=== PATIENT | female | born 1945 | race Caucasian/White ===

== ENCOUNTER 2022-05-02 08:07 | Outpatient (CLI) | payer MEDICARE, BC, SELFPAY ==
--- NOTE | 2022-05-02 08:15 | CRLHL7_ITS ---
For Patients: As a result of the Century Cures Act, medical imaging exams and procedure reports are released immediately into your electronic medical record. You may view this report before your referring provider. If you have questions, please contact your health care provider. BILATERAL SCREENING MAMMOGRAM WITH COMPUTER-AIDED DETECTION TECHNIQUE: CC and MLO views were obtained. These mammographic images have been obtained using full-field digital technique. These mammographic images were interpreted with the benefit of computer-aided detection. COMPARISON FILM: 04/09/21, 03/31/20, 03/23/19 diagnostic, 03/17/19 screen. FINDINGS: There are scattered areas of fibroglandular density. IMPRESSION: There is no radiographic evidence for malignancy. ASSESSMENT: BI-RADS Category 1: Negative RECOMMENDATION: Routine screening mammogram in 1 year. A lay language report of this examination will be provided to the patient. Corby Contreras M.D. Diagnostic Radiologist [email or web address] Transcribed: 12:57 p.m PT/Dictated by: Corby Contreras MD @ 05/02/2022 9:56:00 AM (Electronically Signed)
== END 2022-05-02 08:08 | disposition home or self-care (01) ==
LOC: MAMMO 08:11
PROVIDERS: PCP Internal Medicine; Visit Provider Internal Medicine
DX: Z12.31 Encounter for screening mammogram for malignant neoplasm of breast (principal)
CPT/HCPCS: 77063; 77067

== ENCOUNTER 2022-05-19 10:11 | Emergency (ER) | payer MEDICARE, BC, SELFPAY ==
[2022-05-19 10:17] VITALS: BP 184/105; PULSE 71; RESP 20; TEMP 36.3; O2SAT 96; BMI 27.8
--- NOTE | 2022-05-19 10:35 | ED_ITS ---
HPI - General Adult General Chief complaint: Extremity Pain/Injury, Lower Stated complaint: Pain going down LT leg Time Seen by Provider: 05/19/22 10:20 Source: patient Mode of arrival: ambulatory Limitations: no limitations History of Present Illness HPI narrative: Patient is a very energetic 77-year-old female coming in today concerned about leg pain. She states that when she stands up and puts weight on her left leg that she gets shooting pain that starts in her lower back radiates down the side of the leg all the way down to the toe. She describes it as an electric shock. When she removes weight from that leg the pain goes away. She has no pain with sitting or lying down. She denies any fevers or chills. She denies other systemic symptoms. She denies any loss of bowel or bladder function. She denies any discomfort on the right side. Related Data Home Medications Medication Instructions Recorded Confirmed atorvastatin 20 mg tablet 20 mg PO .Bedtime 05/01/22 05/01/22 [id number] 333 mg-133 1 tab PO QDAY 05/01/22 05/01/22 mg-5 mg tablet clobetasol 0.05 % topical ointment 1 topical DIRECTED 05/01/22 05/01/22 conjugated estrogens 0.625 mg 0.625 mg PO DAILY 05/01/22 05/01/22 tablet cyclosporine 0.05 % eye drops 1 drp ophthalmic (eye) BID 05/01/22 05/01/22 metronidazole 500 mg tablet mg PO BID 05/01/22 05/01/22 multivitamin (Multiple Vitamins 1 tab PO QDAY 05/01/22 05/01/22 tablet) Previous Rx's Medication Instructions Recorded methylprednisolone 4 mg tablets in See Rx Instructions PO .COMPLEX 05/19/22 a dose pack (Medrol (Dominick)) #21 ea Allergies Allergy/AdvReac Type Severity Reaction Status Date / Time sulfamethoxazole Allergy Intermediate extreme Verified 05/01/22 15:13 fever trimethoprim Allergy Intermediate GI upset Verified 05/01/22 15:13 Sulfa drugs Allergy Mild extreme Uncoded 05/01/22 15:13 fever Review of Systems Status of ROS: Reports: 10 or more systems reviewed and unremarkable except as noted in History and below PFS PFS Surgical History History of total vaginal hysterectomy (TVH) Social History Smoking Status: Never smoker How often do you have a drink containing alcohol: monthly or less How many standard drinks containing alcohol do you have on a typical day: 1 or 2 AUDIT-C Alcohol total score: 1 Non-prescribed substance use: denies use Exam Narrative: Exam Narrative: Well-nourished well-developed patient in no acute distress. Alert and oriented. Answers questions appropriately. Mood and affect are appropriate. Thoughts are goal oriented and rational. No tangential or magical thinking noted. Patient speaks in full sentences without needing to catch her breath. HEENT: Normocephalic atraumatic. Pupils are equally round reactive to light. Extraocular muscles are intact. Conjunctivae are moist without any icterus noted. Extremities: Bilateral lower extremities are without edema. Normal DP and PT pulses. There is no skin changes notice such as ecchymosis or erythema. She has full strength of the upper and lower extremities. Reflexes are 2+ symmetric at the knees. She can stand up without difficulty. However she leans forward a little bit when she walks because this alleviates the radiating pain down the left leg.She has full range of motion at the hip without significant discomfort when lying down. Skin: Well perfused without any obvious rashes. Back: Normal appearance. She has no tenderness to palpation over the thoracic or lumbar spine. There is no tenderness over the paraspinal musculature. Const: Vital Signs, click to edit/add: Vital Signs - 24 hr 05/19/22 10:17 Temperature 97.3 F L Pulse Rate [Right Pulse Oximeter] 71 Respiratory Rate 20 Blood Pressure [Ri ght Upper Arm] 184/105 H Pulse Oximetry 96 Oxygen Delivery Me thod Room Air Course Vital Signs Vital signs: Initial Vital Signs Temperature 97.3 F L 05/19/22 10:17 Temperature Source Temporal Artery Scan 05/19/22 10:17 Pulse Rate 71 05/19/22 10:17 Pulse Rhythm 05/19/22 10:17 Respiratory Rate 20 05/19/22 10:17 Blood Pressure 184/105 H 05/19/22 10:17 Blood Pressure Mean 131 05/19/22 10:17 Blood Pressure Position Sitting 05/19/22 10:17 Pulse Oximetry 96 05/19/22 10:17 Oxygen Delivery Method 05/19/22 10:17 Vital Signs Temperature 97.3 F L 05/19/22 10:17 Pulse Rate 71 05/19/22 10:17 Respiratory Rate 20 05/19/22 10:17 Blood Pressure 184/105 H 05/19/22 10:17 Pulse Oximetry 96 05/19/22 10:17 Oxygen Delivery Method 05/19/22 10:17 Temperature 97.3 F L 05/19/22 10:17 Pulse Rate 71 05/19/22 10:17 Respiratory Rate 20 05/19/22 10:17 Blood Pressure 184/105 H 05/19/22 10:17 Pulse Oximetry 96 05/19/22 10:17 Oxygen Delivery Method 05/19/22 10:17 Medical Decision Making MDM Narrative Medical decision making narrative: 77-year-old female who appears to be lumbar radiculopathy. We are going to put the patient on a Medrol Dosepak. I recommend she follow up with primary care provider this coming week. Recommend she follow back in the ER if she develops worsening symptoms, fevers or vomiting. Discharge Plan Discharge Clinical Impression: Acute lumbar radiculopathy Patient Disposition: Home, Self-Care Condition: Stable Additional Instructions: Start steroid as prescribed. Okay to take for Tylenol as needed for discomfort. Follow-up with your primary care provider this coming week. Return to the ER if you develop worsening symptoms, vomiting or fevers. Prescriptions: New methylprednisolone [Medrol (Dominick)] 4 mg tablets,dose pack See Rx Instructions .ROUTE .COMPLEX Qty: 21 0RF Rx Instructions: orally per package directions No Action cyclosporine 0.05 % drops 1 drp ophthalmic (eye) BID clobetasol 0.05 % ointment 1 topical DIRECTED Rx Instructions: APPLY SPARINGLY TO AFFECTED AREA [id number]-rlac [id number] mg tablet 1 tab PO QDAY multivitamin [Multiple Vitamins] Tablet 1 tab PO QDAY atorvastatin 20 mg tablet 20 mg PO .Bedtime metronidazole 500 mg tablet PO BID Rx Instructions: avoid alcohol while taking this medication. conjugated estrogens 0.625 mg tablet 0.625 mg PO DAILY Rx Instructions: Take 0.5 tab daily Follow Up/Referrals: Baldemar Starks MD [Primary Care Provider] - Stand Alone Forms: [facility] Info Instructions
[2022-05-19 11:08] VITALS: BP 184/105; PULSE 71; RESP 20; TEMP 36.3
== END 2022-05-19 11:09 | disposition home or self-care (01) ==
LOC: ED 10:59
PROVIDERS: Emergency Provider Family Medicine; PCP Internal Medicine
DX: M54.16 Radiculopathy, lumbar region (principal)
CPT/HCPCS: 99283; 99284

== ENCOUNTER 2022-06-03 13:00 | Outpatient (RCR) | payer MEDICARE, BC, SELFPAY ==
--- NOTE | 2022-05-27 16:39 | PT.OPE ---
[facility] PT [facility] Outpatient Eval Start: 05/27/22 12:41 Freq: Status: Active Protocol: Document 05/27/22 16:37 CJT (Rec: 05/27/22 16:39 CJT [id number]) E-signed By Iván Soto PT Physical Therapy Outpatient Evaluation Insurance Information Recert Due Date 07/22/22 Insurance Name Medicare B Medical Diagnosis M54.3 - sciatica, unspecified side Treating Diagnosis M54.32 - L sciatica Referring Baldemar Morton MD Subjective Subjective Pt complains of L sided sciatica beginning 05/19/22. Pain ranges from 0-10/10 at times with occasional sharp pain. Pt has no pain in sitting but has increased pain in standing as well as reaching overhead. Pt presents with stooped posture. Pts pain is located in anterior L thigh and tibialis anterior. Sleeps on her back. Does pelvic clocks, cat/cow, cobra stretch, tiger stretch x 10 seconds ea x 3/day. Stand tolerance is about 1 minute before onset of leg pain. [place] a spasm on her R buttock several days ago that has since resolved. Pain symptoms have been fluctuating over the past week. Has been fine to lay on her back with legs straight but over the past few days she has been having pain in the L leg with having it extended. Pt has history of injury to low back in which she fell on her back after falling on the stairs. [place] a pop but was able to walk just fine. This was about 25-30 years ago now. Pain Comments 0-10/10 Date of Last Physician Visit 05/22/22 Current Work Status Retired Preferred Name Paty [facility] Therapy Limitations/Systems Review Not Limited Objective Range of Motion Lumbar ROM Extension - 25 Flexion - 120 - can easily reach R/L Side Bend - 26/30 R/L Rotation - no impairments bilaterally R Hip ROM Flexion - 120 IR/ER - 40/35 L Hip ROM Flexion - 120 IR/ER - 30/25 R knee ROM - full L knee ROM - full Strength Upper Abdominals - DNT Lower Abdominals - DNT R Hip Strength Flexion - 5/5 MMT Abduction - 4/5 MMT Adduction - 5/5 MMT IR - 5/5 MMT ER - 5/5 MMT Extension - 4/5 MMT L Hip Strength Flexion - 5/5 MMT Abduction - 4/5 MMT Adduction - 5/5 MMT IR - 5/5 MMT ER - 4/5 MMT Extension - 4/5 MMT R knee Extension - 5/5 MMT R Knee Flexion - 5/5 MMT L knee Extension - 5/5 MMT L knee Flexion - 5/5 MMT R ankle DF - 5/5 MMT L ankle DF - 5/5 MMT Palpation Palpation: pt tender with palpation to R>L adductor bundle, glute med, piriformis, and glute min with spasms present in R>L glute med. Other/Pertinent Objective All special testing for disc and radicular sources of pain is negative at this time. Assessment Assessment/Impression Pt is a 77 year old female who presents to OP PT clinic with complaints of L thigh and leg pain. Pts pain is located along rectus femoris and tibialis anterior mm on L side with specific movements. Patterns of pain are unclear at this time but seem to be related to extension in WB positions. Pt walked in with a hunched postured and noted that this was not painful for her but if she stood up this was painful and pain was located in anterior thigh and john. Testing for disc and radicular involvement was negative today. Paty's symptoms seem to be radicular in nature ad extension general causes her pain to be worse and she improves with core stabilization. Pt leaves for vacation to [place] in 2 weeks and would like to resolve this issue by then. Skilled PT services are medically necessary to address deficits and return patient to highest level of function. Recommend physical therapy sessions 1-2/ week for 8 weeks. We will plan to work with Paty until she leaves for her vacation in 2 weeks and she may contact us when she returns if further treatment is needed. Pt agrees with this plan. Printout of HEP was given for I completion and pt gives verbal understanding of each exercise. Primary Functional Limitations Standing, reaching overhead Plan of Care Rehabilitation Potential Good Physical Therapy Goals STG - To be completed in 2-3 weeks: 1. Pt will report reduction in back pain by factor of 2 so that they may perform all ADLs with tolerable level of pain. 2. Pt will demonstrate ability to perform pelvic tilt with good coordination as indication of appropriate firing of pelvic and lumbar stabilizing muscles to provide greater support for pelvis and lumbar spine. 3. Pt will demonstrate 5/5 MMT for all LE motions without reproduction of pain to provide greater support to pelvis and lumbar spine. 4. Pt will report ability to tolerate 30+ minutes of standing so that they may stand while on tours of historical sites in [place]. LTG - To be completed in 8 weeks: 1. Pt to be I with HEP so that they may I manage progression of symptoms. 2. Pt will demonstrate 5/5 MMT for both upper and lower abdominals to provide greater support to pelvis and lumbar spine. 3. Pt will report absence of thigh and leg pain with standing so that she may stand and walk in grocery store without pain. Treatment Plan/Direct Interventions Joint Mobilization,Manual Therapy,Neuromuscular Re-ed, Self-Care/Home Management, Therapeutic Exercises,Traction (Mechanical) Frequency/Duration 2/week for 8 weeks Patient Will Be Discharged From Therapy Completion of LTG(s),Skills Plateau,Independent w/HEP, Independently Progressing Evaluation Billing Untimed Code Treatment Minutes 55 PT Eval No Charge No Complexity Low Certification Information Initial Certification Date 05/27/22 Ending Certification Date 07/22/22 Provider Signature Shows Agreement With POC & Medical Necessity Physician Comment/Change Comment or Changes Physician NPI Number #
== END 2022-07-17 12:42 | disposition home or self-care (01) ==
PROVIDERS: PCP Internal Medicine; Visit Provider Internal Medicine
DX: M54.30 Sciatica, unspecified side (principal); Z51.89 Encounter for other specified aftercare
CPT/HCPCS: 97110; 97112; 97140; 97161

== ENCOUNTER 2022-06-28 07:08 | Outpatient (CLI) | payer MEDICARE, BC, SELFPAY ==
--- NOTE | 2022-06-28 07:15 | MR_ITS ---
[facility] [address] [facility] [address] Phone:?[phone] Fax:?[phone] Referring Physician Information: Baldemar Starks M.D. [address] [facility] [address] Phone:?[phone] Fax:?[phone] Patient:Krystyna Toribio D.O.B:?1945 Sex:?Female Phone:?[phone] [facility] MRN:?[id number] Exam Date:?06/28/2022 ? EXAM: MR LUMBAR SPINE WITHOUT CONTRAST CLINICAL INFORMATION: 77-year-old female with low back pain. COMPARISON: None. TECHNICAL INFORMATION: Sagittal T2, sagittal T1, sagittal STIR, axial T2, and axial T1-weighted MR images of the lumbar spine on a 1.5 Berna magnet. CONTRAST: None. SEDATION: None. INTERPRETATION: Lordotic alignment of 5 nonrib-bearing lumbar vertebral bodies with scattered degenerative endplate disruption/edema greatest at L4-5 on the left, and no spondylolysis, vertebral collapse, acute fracture, or destructive osseous lesion. Normal pre and paravertebral soft tissues. Conus medullaris positioned at L1-2. Developmentally conjoined left L5-S1 nerve roots. L5-S1: Degenerative disc desiccation with preserved disc height, 2-3 mm AP slightly caudally extruded dorsal disc herniation, and mild bilateral facet degeneration. Mild bilateral subarticular stenosis, with encroachment of the developmentally lateralized descending left S1 root, just beyond its branch point from the conjoined left L5/S1 root. Patent foramina. L4-5: Moderate to advanced disc degeneration, 8 mm spondylolisthesis, dorsal to left greater than right annular fissures, unroofing of the dorsal disc margin, advanced bilateral facet degeneration with mild inflammatory subchondral edema, and severe central/bilateral subarticular stenosis with superior nerve root tortuosity indicating impingement and traction on the cauda equina. Moderate to severe left and mild right foraminal stenosis, noting contribution on the left from a 4 mm AP extruded distal foraminal disc herniation impinging the exiting left L4 root. L3-4: Mild disc degeneration, mild diffuse annular bulge, superimposed left foraminal annular fissure/2-3 mm protrusion, mild bilateral facet degeneration, mild to moderate left/mild right subarticular stenosis with descending left L4 root encroachment, and mild left greater than right foraminal stenosis. L2-3: Moderate disc degeneration, dorsal annular fissure, diffuse annular bulge, mild facet degeneration, mild bilateral subarticular stenosis, and mild bilateral foraminal stenosis. L1-2: Moderate disc degeneration, mild dorsal annular bulge, mild bilateral facet degeneration, and no stenosis or impingement. T12-L1 and T11-12: Normal dorsal disc contours and normal facets. CONCLUSION: Multilevel lumbar degenerative changes with specifics as follows: 1. L4-5 severe central and subarticular stenosis with impingement and traction on the cauda equina setting of grade 1 degenerative spondylolisthesis. 2. L3-4 mild to moderate subarticular encroachment of the descending left L4 root. Mild subarticular stenosis bilaterally at L2-3, on the right at L3-4, and left greater than right L5-S1, noting encroachment of the developmentally lateralized left S1 root, just beyond its branch point from the conjoined left L5/S1 root. 3. Foraminal stenosis, moderate to severe on the left at L4-5, noting contribution from an extruded disc herniation impinging the exiting left L4 root. Mild on the right at L4-5, left greater than right at L3-4, and bilaterally at L2-3. 4. Facet degeneration, advanced bilaterally at L4-5 with superimposed mild inflammatory changes. Mild bilaterally at L2-3, L3-4, and L5-S1. 5. No spondylolysis, vertebral collapse, acute fracture, or destructive osseous lesion. 6. Multilevel degenerative endplate disruption/edema greatest on the left at L4- 5 is another potential source of axial/mechanical low back pain. PDB Electronically signed on 06/30/2022 12:29:00 PM by Ervin Edward M.D.
== END 2022-06-28 07:09 | disposition home or self-care (01) ==
LOC: MRI 07:09
PROVIDERS: PCP Internal Medicine; Visit Provider Internal Medicine
DX: M54.30 Sciatica, unspecified side (principal); M54.50 Low back pain, unspecified; M48.061 Spinal stenosis, lumbar region without neurogenic claudication
CPT/HCPCS: 72148

== ENCOUNTER 2022-07-16 14:03 | Outpatient (CLI) | payer MEDICARE, BC, SELFPAY ==
--- OUTSIDE RECORDS SUMMARY | 2022-07-16 14:12 | XMS_ITS | Clinical Summary ---
:1945 Author Organization [employer] [facility] [place] [address] Care Team Providers Name Role Phone Pcp, No Primary Care Provider Unavailable Allergies Active Allergy Reactions Severity Noted Date Comments Sulfa (Sulfonamide Other - Describe In 07/08/2022 Te mperature dropped, Antibiotics) Comment Field fell ill Medications Medication Sig Dispensed Refills Start Date End Date Status atorvastatin (LIPITOR) Take 20 mg by 0 05/18/2022 Active 20 mg tablet mouth at bedtime. Restasis 0.05 % Place 1 Drop into 0 05/29/2022 Active ophthalmic emulsion both eyes two times daily. triamcinolone APPLY TOPICALLY 0 12/12/2021 Active (ARISTOCORT; KENALOG) TO THE AFFECTED 0.1 % cream AREA TWICE DAILY gabapentin (NEURONTIN) Take 1 Capsule 30 Capsule 3 07/08/2022 Active 300 mg (300 mg) by mouth capsuleIndications: at bedtime. Lumbosacral radiculopathy at L4 Active Problems No known active problems Encounters Date Type Specialty Care Team Description 07/16/2022 Telephone Aydin Reyes Injecti on (Medication) (POSSIBLE WEAKN ESS) 07/16/2022 Travel 07/15/2022 Telephone Aydin Reyes Questio ns MD 07/08/2022 Office Visit Aydin Reyes, Musculo skeletal Problem (Consult low ba ck and left leg pain) 07/08/2022 Travel 07/05/2022 Orders Only Scanner <No scans attac hed> 07/05/2022 Telephone Aydin Reyes, Mak (MRI SCANS ) 06/28/2022 Orders Only Scanner <No scans attac hed> from Last 3 Months Family History Medical History Relation Name Comments Genetic Other 1 macular degenera tion-parent Genetic Other 2 macular degenera tion-parent~cancer~irregular heart beat~thyroid~art hritis Relation Name Status Comments Other 1 Other 2 Social History Tobacco Use Types Packs/Day Years Used Date Never Smoker 0 Smokeless Tobacco: Never Used Tobacco Cessation: Counseling Given: Yes Sex Assigned at Date Recorded Not on file COVID-19 Exposure Response Date Recorded In the last 10 days, have you been in contact Unable to asse ss 07/16/2022 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 Obstetrics History Last Filed Vital Signs Vital Sign Reading Time Taken Comments Blood Pressure 167/96 07/08/2022 9:00 AM TRANSCRIBING MACHINE OPERATOR Pulse 80 07/08/2022 9:00 AM TRANSCRIBING MACHINE OPERATOR Temperature 36.7 ??C (98.1 ??F) 07/08/2022 9:00 AM TRANSCRIBING MACHINE OPERATOR Respiratory Rate - - Oxygen Saturation 96% 07/08/2022 9:00 AM TRANSCRIBING MACHINE OPERATOR Inhaled Oxygen Concentration - - Weight 75.3 kg (166 lb) 07/08/2022 9:00 AM TRANSCRIBING MACHINE OPERATOR Height - - Body Mass Index - - Plan of Treatment Upcoming Encounters Date Type Specialty Care Team Description 07/16/2022 Office Visit Aydin Reyes MD Arrived [address] [place], [place] [address] (Wo rk) Health Maintenance Due Date Last Done Comments COVID-19 vaccine series (#1) 1945 Tdap 1954 Depression screening for age 12+ 1955 BMI (ht and wt on same day) for age 18+ 1961 Hepatitis C screening for age 18-79 1961 Tetanus booster 1963 Zoster (shingles) series for age 50+ (1 of 2) 1993 DEXA/DXA scan for age 65+ 01/31/2008 Medicare Wellness for age 65+ 01/31/2008 Pneumococcal series for age 65+ (1 - PCV) 01/31/2008 Influenza for age 65+ 04/25/2022 Procedures Procedure Name Priority Date/Time Associated Diagnosis Comme nts AMB EPIDURAL STEROID Routine 07/16/2022 8:11 Lumbosacral INJECTION AM TRANSCRIBING MACHINE OPERATOR radiculopathy at L4 Spondylolisthesis of lumbar region Lumbosacral radiculopathy at L5 Lumbar foraminal stenosis SCAN CORRESP-IMAGING 07/05/2022 12:00 Res ults for this AM TRANSCRIBING MACHINE OPERATOR procedure are i n the results section. SCAN-MRI 06/28/2022 12:00 INTERPRETATION AM CDT from Last 3 Months Results SCAN CORRESP-IMAGING (07/05/2022 12:00 AM TRANSCRIBING MACHINE OPERATOR) Narrative This result has an attachment that is no t available. Scanner OTHER SCAN-MRI INTERPRETATION (06/28/2022 12:00 AM CDT) Narrative This result has an attachment that is no t available. Scanner OTHER from Last 3 Months Insurance Payer Benefit Plan / Subscriber ID Effective Dates Phone Addre ss Type Group MEDICARE - PB MEDICARE PB [id number] 2009-Alireza ATTN : CLAIMS USE ONLY ONLY t [address] [facility] [address] BLUE CROSS BLUE CROSS OF [id number] 2016-Alireza [address] [place] [address] (Work) [id number] Care Teams Rate Setter Relationship Specialty Start Date End Date Pcp, No PCP - General 07/08/22 .
== END 2022-07-16 14:04 | disposition home or self-care (01) ==
PROVIDERS: PCP Internal Medicine; Visit Provider Family Medicine
DX: M54.16 Radiculopathy, lumbar region (principal); M51.36 Other intervertebral disc degeneration, lumbar region
CPT/HCPCS: 64483; 64484; J1100; Q9966

== ENCOUNTER 2022-10-28 14:39 | Outpatient (CLI) | payer MEDICARE, BC, SELFPAY ==
--- NOTE | 2022-10-28 15:00 | CRLHL7_ITS ---
For Patients: As a result of the Century Cures Act, medical imaging exams and procedure reports are released immediately into your electronic medical record. You may view this report before your referring provider. If you have questions, please contact your health care provider. DATE: 10/28/2022. CLINICAL HISTORY: Left orbital injury several weeks ago; now itchy and with headache. TECHNIQUE: Standard helical CT image acquisition of the brain was performed. COMPARISON: None available. FINDINGS: There is no intracranial hemorrhage. No extra-axial collection, mass effect, or midline shift. Conner-white matter differentiation is preserved. The ventricles are normal in size and morphology for patient age. Mild patchy hypoattenuation within the white matter of both hemispheres likely reflects sequela of chronic small vessel ischemia. Intracranial atherosclerotic calcification. The calvarium is unremarkable. 1.5cm hyper attenuating nodule in the right frontal scalp favored to reflect an epidermal inclusion cyst. The orbits are unremarkable. Complete opacification of the right maxillary sinus with areas of hyperattenuation and minimization likely reflecting fungal colonization versus inspissated secretions. There is also mucoperiosteal thickening in keeping with chronic sinusitis. Polypoid mucosal thickening of the left sphenoid sinus. The mastoid air cells are unremarkable. The soft tissues are unremarkable. IMPRESSION: 1. No CT evidence of acute intracranial abnormality. 2. Findings likely reflecting sequela of chronic small vessel ischemia. 3. Chronic right maxillary sinusitis, as above, as well as polypoid mucosal thickening of the left sphenoid sinus. Please note that all CT scans at this facility use dose modulation, iterative reconstruction, and/or weight-based dosing when appropriate to reduce radiation dose to as low as reasonably achievable. Dictated by Donny Parker MD @ 10/28/2022 10:28:14 PM (Electronically Signed)
== END 2022-10-28 14:40 | disposition home or self-care (01) ==
LOC: CT 14:41
PROVIDERS: PCP Internal Medicine; Visit Provider Internal Medicine
DX: R51.9 Headache, unspecified (principal); I67.82 Cerebral ischemia; J32.0 Chronic maxillary sinusitis; S09.90XA Unspecified injury of head, initial encounter
CPT/HCPCS: 70450

== ENCOUNTER 2022-12-23 11:00 | Outpatient (RCR) | payer MEDICARE, BC, SELFPAY | END 2023-04-04 09:58 | disposition home or self-care (01) | PROVIDERS: PCP Internal Medicine; Visit Provider Family Medicine | DX: M54.16 Radiculopathy, lumbar region (principal); Z51.89 Encounter for other specified aftercare | CPT/HCPCS: 97110; 97140; 97162; 97535 ==

== ENCOUNTER 2022-12-27 11:14 | Outpatient (CLI) | payer MEDICARE, BC, SELFPAY | END 2022-12-27 11:15 | disposition home or self-care (01) | PROVIDERS: PCP Internal Medicine; Visit Provider Internal Medicine | DX: Z12.11 Encounter for screening for malignant neoplasm of colon (principal); K64.8 Other hemorrhoids; K63.5 Polyp of colon; K57.30 Diverticulosis of large intestine without perforation or abscess without bleeding | CPT/HCPCS: 45380; 88305; J2250; J3010 ==

== ENCOUNTER 2023-02-06 08:04 | Outpatient (CLI) | payer MEDICARE, BC, SELFPAY ==
--- NOTE | 2023-02-06 08:15 | MR_ITS ---
Final Report Patient: GRISEL LEONARD Facility:?[facility] Patient ID:?[id number] Site Patient ID:?[id number]. Site :?[id number] Study:?MRI Spine Lumbar W/O-02/06/2023 11:12:59 AM Ordering Physician:PEE CASTILLO Final Report: INDICATION: Low back pain. COMPARISON: 06/28/2022. TECHNIQUE: Sagittal T1, T2, and STIR sequences. Axial T1 and T2 weighted sequences. FINDINGS: Stable grade 1-2 anterolisthesis of L4 on L5 measured approximately 9 mm secondary to degenerative changes. Otherwise, normal alignment. No fractures. No vertebral body loss of height. No ligamentous injury. No suspicious osseous lesions. Normal conus terminates at L1-2. T12-L1: No spinal canal neural foraminal narrowing. L1-2: Disc degeneration diffuse disc bulge. No narrowing of spinal canal. No neural foraminal narrowing. L2-3: Stable disc degeneration. Diffuse disc bulge eccentric to the right. No narrowing of spinal canal. No neural foraminal narrowing. L3-4: Disc degeneration. Posterior disc bulge. Mild narrowing of spinal canal. No neural foraminal narrowing. Mild facet arthropathy. L4-5: Grade 1-2 anterolisthesis. Disc degeneration. Modic type 1 endplate changes. Unroofed posterior disc bulge. Combined with ligament flavum facet hypertrophy, there is stable severe narrowing of spinal canal. Impingement of the traversing L5 nerve roots bilaterally. Oblique orientation of bilateral foramina with moderate narrowing of the left neural foramen. No narrowing of the right neural foramen. Severe facet arthropathy. L5-S1: Disc degeneration. Posterior disc herniation. Mild narrowing of spinal canal. No rosangela impingement of the traversing S1 nerve roots. No neural foraminal narrowing. Normal visualized SI joints. Normal paraspinal soft tissues. IMPRESSION: 1. Stable grade 1-2 anterolisthesis of L4 on L5. Otherwise, normal alignment. No fractures 2. Stable lumbar spondylosis. 3. At L4-5, disc degeneration. Stable severe narrowing of the spinal canal. Impingement of the traversing L5 nerve roots. Moderate narrowing of the left neuroforamen. 4. At L3-4, mild narrowing of the spinal canal Dictated by Ervin Redman MD @ 02/07/2023 10:52:55 AM (Electronic Signature)
== END 2023-02-06 08:05 | disposition home or self-care (01) ==
LOC: MRI 08:05
PROVIDERS: PCP Internal Medicine; Referring Provider Family Medicine; Visit Provider Orthopaedic Surgery Orthopaedic Surgery of the Spine
DX: M54.50 Low back pain, unspecified (principal); M47.816 Spondylosis without myelopathy or radiculopathy, lumbar region; M51.36 Other intervertebral disc degeneration, lumbar region
CPT/HCPCS: 72148

== ENCOUNTER 2023-03-06 07:33 | Outpatient (CLI) | payer MEDICARE, BC, SELFPAY | END 2023-03-06 07:34 | disposition home or self-care (01) | LOC: NFLDREF 14:38 | PROVIDERS: PCP Internal Medicine; Referring Provider Internal Medicine; Visit Provider Internal Medicine | DX: E78.5 Hyperlipidemia, unspecified (principal) | CPT/HCPCS: 80061 ==

== ENCOUNTER 2023-05-06 08:08 | Outpatient (CLI) | payer MEDICARE, BC, SELFPAY ==
--- NOTE | 2023-05-06 08:15 | CRLHL7_ITS ---
For Patients: As a result of the Century Cures Act, medical imaging exams and procedure reports are released immediately into your electronic medical record. You may view this report before your referring provider. If you have questions, please contact your health care provider. BILATERAL DIGITAL SCREENING MAMMOGRAM WITH COMPUTER-AIDED DETECTION WITH TOMOSYNTHESIS CLINICAL HISTORY: Routine screening exam. COMPARISON: 05/02/2022, 04/09/2021, 03/31/2020, 03/23/2019. TECHNIQUE: Digital mammogram in CC and MLO projections including computer-aided detection (CAD). Tomosynthesis was used. BREAST COMPOSITION: There are scattered areas of fibroglandular density FINDINGS: RIGHT Breast: No suspicious findings. LEFT Breast: Focal asymmetric density within the lower LEFT breast 6 cm from the nipple. IMPRESSION: LEFT breast asymmetry/mass. RECOMMENDATIONS: Additional mammographic views of the LEFT breast including 3D spot compression CC/MLO. LEFT breast ultrasound may also be required. The [facility] will contact the patient for follow-up. A lay language report of this examination will be provided to the patient. BI-RADS Category 0: Incomplete: Need Additional Imaging Evaluation and/or Prior Mammograms for Comparison. Dictated by Corby Contreras MD @ 05/06/2023 10:49:46 AM/mehreen CINDI/Dictated by: Corby Contreras MD @ 05/06/2023 10:50:00 AM (Electronically Signed)
== END 2023-05-06 08:09 | disposition home or self-care (01) ==
LOC: MAMMO 08:10
PROVIDERS: PCP Internal Medicine; Visit Provider Obstetrics & Gynecology
DX: Z12.31 Encounter for screening mammogram for malignant neoplasm of breast (principal); N63.20 Unspecified lump in the left breast, unspecified quadrant
CPT/HCPCS: 77063; 77067

== ENCOUNTER 2023-05-19 07:34 | Outpatient (CLI) | payer MEDICARE, BC, SELFPAY ==
--- NOTE | 2023-05-19 07:45 | CRLHL7_ITS ---
For Patients: As a result of the Century Cures Act, medical imaging exams and procedure reports are released immediately into your electronic medical record. You may view this report before your referring provider. If you have questions, please contact your health care provider. CLINICAL HISTORY: LEFT breast mass/asymmetry. COMPARISON: 05/06/2023 TECHNIQUE: Digital LEFT mammogram in 2 projections. Real-time ultrasound imaging of LEFT breast with imaging documentation. Scanning was performed by both the technologist and the radiologist. BREAST COMPOSITION: Scattered fibroglandular densities. FINDINGS: 3D spot compression CC/MLO left breast mammogram images submitted. Decreased conspicuity of previously noted asymmetric density. No architectural distortion. No suspicious calcifications. Targeted left breast ultrasound performed inferiorly between 4-6 o`clock 7 cm from the nipple. Benign fibroglandular tissue noted without suspicious mass. IMPRESSION: No evidence of malignancy. RECOMMENDATIONS: Annual bilateral screening mammography. BI-RADS: 2. Benign. Results and recommendations discussed with the patient. Dictated by Corby Contreras MD @ 05/19/2023 9:04:40 AM (Electronically Signed)
--- NOTE | 2023-05-19 08:15 | CRLHL7_ITS ---
For Patients: As a result of the Century Cures Act, medical imaging exams and procedure reports are released immediately into your electronic medical record. You may view this report before your referring provider. If you have questions, please contact your health care provider. PLEASE SEE LEFT DIAGNOSTIC MAMMOGRAM OF SAME DAY. CRL:david RD/Dictated by: Corby Contreras MD @ 05/19/2023 9:04:00 AM (Electronically Signed)
== END 2023-05-19 07:35 | disposition home or self-care (01) ==
LOC: MAMMO 07:35
PROVIDERS: PCP Internal Medicine; Visit Provider Obstetrics & Gynecology
DX: N63.20 Unspecified lump in the left breast, unspecified quadrant (principal); R92.8 Other abnormal and inconclusive findings on diagnostic imaging of breast
CPT/HCPCS: 76642; 77065; G0279

== ENCOUNTER 2023-07-23 13:00 | Outpatient (RCR) | payer MEDICARE, BC, SELFPAY ==
--- NOTE | 2023-05-27 10:41 | PT.OPEX ---
PT [facility] Outpatient Eval PT [facility] Outpatient Eval Start: 05/23/23 16:16 Freq: Status: Active Protocol: Document 05/27/23 07:25 RAINER (Rec: 05/27/23 10:34 RAINER [id number]) E-signed By Brittany García, PT Physical Therapy Outpatient Evaluation Insurance Information Insurance Name Medicare B,Blue Cross/Blue Shield Medical Diagnosis Piriformis syndrome Treating Diagnosis limited ROM/stiffness weakness pain Referring MD Dr Starks Gerardo Newman presents with diagnosis of piriformis syndrome that is affecting both sides. Symptoms started in her R piriformis in December 2022 and has gradually gotten worse. Over the past 3-4 weeks , pt noticed intermittent issues in her L piriformis. Pain is located in B mid buttock region. Does not radiate down either LE. Pt has been seen in PT previously for LB dysfunction (from 09/16 -01/14): LS radiculopathy at L4 and L5, spondylolisthesis and formal stenosis. At that point in time, pt was having significant issues with L LE radiculopathy and weakness ( koki with L ankle DF), and neural tension. She did well with her therapy with near resolution of her LB symptoms. Her current pain is located more often in the R mid buttock. Rates her pain as 8 /10. Pain interferes with her ability to sit for long periods of time, riding in car , and with rolling over onto her R side. She lives a very active lifestyle attending multiple classes throughout the week at the local senior center (yoga, aquatic classes, silver sneakers for balance), line dancing, and going to walks. Her goal for therapy is to reduce her symptoms. Pain Comments 8/10 Current Work Status Retired Precautions Treatment Precautions/Contraindications LS radiculopathy at L4 and L5, spondylolisthesis formal stenosis. Assessment Assessment/Impression 78 yo client presents with diagnosis of piriformis syndrome. Pt has a long PMH of lumbar dysfunction. Pt's posture is overall fair- flattened lumbar spine. Symmetry is noted at iliac crests. Overall has mild limited trunk AROM into all planes, denies pain. B hip PROM Is WFL with the exception of R hip- ER: 30, IR: 15, and B hip ext: to neutral. SLR on R: 65, L: 50, limited by tightness. L ankle DF AROM limited to neutral, R is WFL. MMT of LEs is WFL with the exception of L ankle DF: 4-/5. Hypomobility is noted from T10-L2, and along R SIJ. Spasms are present in B piriformis and along Gmed. Pt is appropriate for further skilled PT services including use of therapeutic exercise, therapeutic activities, neuromuscular re-ed, manual therapy, and self cares for symptom reduction. Plan of Care Rehabilitation Potential Good Physical Therapy Goals Short-term goals to be completed in 4 weeks: 1. Pt will demonstrate ability to perform pelvic tilts with transitional movements into sitting, standing, and lying down for pain reduction with daily activities. 2. Pt will report ability to sleep through night without waking due to LBP. 3. Pt will report ability to sit up to 30 mins with <3/10 LBP for ability to return to traveling, singing in [employer] choir, and for community based activities. Long-term goals to be completed in 12 weeks: 1. Pt will be independent with HEP for further symptom reduction and ability to self manage symptoms. 2. Pt will report a reduction in her LB/Buttock pain to no greater than 2/10 with household activities and ADLs. 3. Pt will display >25% improvement in hamstring flexibility to safely pickling solution maker objects off floor. Coordination/Communication With Referral Source Treatment Plan/Direct Interventions Joint Mobilization,Manual Therapy,Neuromuscular Re-ed, Self-Care/Home Management, Therapeutic Activities, Therapeutic Exercises Frequency/Duration 1 time a week for up to 10 visits Patient Will Be Discharged From Therapy Completion of LTG(s),Skills Plateau,Independent w/HEP, Independently Progressing Evaluation Billing Untimed Code Treatment Minutes 30 Complexity Moderate Certification Information Initial Certification Date 05/27/23 Ending Certification Date 08/25/23 Provider Signature Shows Agreement With POC & Medical Necessity Physician Signature & Date Requested Please Sign/Date Here Physician Comment/Change : Physician NPI Number #
== END 2023-11-20 23:59 | disposition home or self-care (01) ==
PROVIDERS: PCP Internal Medicine; Visit Provider Internal Medicine
DX: G57.00 Lesion of sciatic nerve, unspecified lower limb (principal); R52 Pain, unspecified; M25.60 Stiffness of unspecified joint, not elsewhere classified; R53.1 Weakness; Z51.89 Encounter for other specified aftercare
CPT/HCPCS: 93971; 97110; 97140; 97162; 97535

== ENCOUNTER 2023-10-20 07:49 | Outpatient (CLI) | payer MEDICARE, BC, SELFPAY | END 2023-10-20 07:50 | disposition home or self-care (01) | PROVIDERS: PCP Internal Medicine; Visit Provider Internal Medicine | DX: R41.82 Altered mental status, unspecified (principal); R00.1 Bradycardia, unspecified; R20.0 Anesthesia of skin; R68.89 Other general symptoms and signs | CPT/HCPCS: 93225; 93226 ==

== ENCOUNTER 2024-04-02 08:52 | Outpatient (CLI) | payer MEDICARE, BC, SELFPAY ==
--- OUTSIDE RECORDS SUMMARY | 2024-04-06 15:56 | XMS_ITS | Encounter Summary ---
Author Organization [facility] Address [address] [place] [address] Care Team Providers Care Tutoring Manager Name Role Phone Unavailable Primary Care Provider Unavailabl e Encounter Details Date Type Department Care Team (Late st Contact Info) Description 11/22/2002 Historical Ophthalmology RST OPH Brennen Menendez M.D. [address] [place] [address] Social History Tobacco Use Types Packs/Day Years Used Date Smoking Tobacco: Never Assessed Sex and Gender Information Value Date Recorded Sex Assigned at Not on file Gender Identity Not on file Sexual Orientation Not on file documented as of this encounter Progress Notes * Brennen Menendez M.D. - 11/22/2002 12:00 AM CST Eye General CHIEF COMPLAINT evaluation for salzmann's nodules HISTORY OF PRESENT ILLNESS Occasional poor vision OS. Today vision OS is definitely not clear. Feeling of pressure OS for a few days, weeping OS and redness OU . This occurs only during August for the past few years. No irritation other than in August. Does note dryness when doesn't use artificial tears. Diagnosed with Salzmann's in September. History of mole in eye.SYMPTOMS FOR SEVERAL YEARS. EVERY WINTER OS GETS RED ANDPAINFUL. OD GETS RED WELL. CONTACTS IN PAST. NOT FOR DECADES. TREATED WITH ART TEARS ONLY WITH SOME HELP. 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 RESPONDING WELL TO LUBRICATION ONLY. EXCISE ONLY IF SX WORSENING. 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
--- OUTSIDE RECORDS SUMMARY | 2024-04-06 15:56 | XMS_ITS ---
Author Organization [facility] Address [address] [place] [address] Care Team Providers Care Meeting Facilitator Name Role Phone Unavailable Unavailable Unavailable Surgery Details Not on file Complications Check Surgery Details section. Procedure Estimated Blood Loss Check Surgery Details section. Procedure Findings Check Surgery Details section. Procedure Specimens Taken Check Surgery Details section.
--- OUTSIDE RECORDS SUMMARY | 2024-04-06 15:56 | XMS_ITS | Encounter Summary ---
Author Organization [facility] Address [address] [place] [address] Care Team Providers Care Drafter Heating And Ventilating Name Role Phone Unavailable Primary Care Provider Unavailabl e Encounter Details Date Type Department Care Team (Late st Contact Info) Description 08/31/2004 Historical Ophthalmology RST OPH Brennen Menendez M.D. [address] [place] [address] Social History Tobacco Use Types Packs/Day Years Used Date Smoking Tobacco: Never Assessed Sex and Gender Information Value Date Recorded Sex Assigned at Not on file Gender Identity Not on file Sexual Orientation Not on file documented as of this encounter Progress Notes * Brennen Menendez M.D. - 08/31/2004 12:00 AM CST Eye General CHIEF COMPLAINT Patient here for two year recheck, having some trouble with reading, has noticed that she is squinting when looking at grocery store shelfs. HISTORY OF PRESENT ILLNESS READING VA COULD BE BETTER. SOME CRUSTING IN CORNERS OF EYES - OU. EYES RED THIS FALL AND WINTER. 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 PLAN: SPECTACLE PRESCRIPTION GIVEN. EXAM OTERWISE STABLE. RECHECK 1YR AND PRN. DISCUSSED OPTIONS FOR DRY EYE SX. DISCUSSED ALL IN DETAIL. RESPONDING WELL TO LUBRICATION ONLY. EXCISE ONLY IF SX WORSENING. 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 [facility] Reports - EYEGEN Id: [id number] Status: Fnl documented in this encounter Plan of Treatment Not on file documented as of this encounter Visit Diagnoses Not on filedocumented in this encounter
--- OUTSIDE RECORDS SUMMARY | 2024-04-06 15:56 | XMS_ITS | Encounter Summary ---
Author Organization [facility] Address [address] [place] [address] Care Team Providers Care Process Description Writer Name Role Phone Unavailable Primary Care Provider Unavailabl e Encounter Details Date Type Department Care Team (Late st Contact Info) Description 05/25/2008 Historical Ophthalmology RST OPH Brennen Menendez M.D. [address] [place] [address] Social History Tobacco Use Types Packs/Day Years Used Date Smoking Tobacco: Never Assessed Sex and Gender Information Value Date Recorded Sex Assigned at Not on file Gender Identity Not on file Sexual Orientation Not on file documented as of this encounter Progress Notes * Brennen Menendez M.D. - 05/25/2008 3:59 PM CDT Eye General CHIEF COMPLAINT recheck pain and redness left eye HISTORY OF PRESENT ILLNESS Patient states had flare-up of the tearing when she stopped her eye drops, per phone call is using three drops of 1%, (Prednisolone Acetate) now. 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 #4 recent conjunctivitis recurrence of sx when stopping gtts - probably iritis. rx pf tid and taper off over 4 wks. rtc 6wks. 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 #4 recent conjunctivitis CDM Reports - EYEGEN Id: [id number] Status: Fnl documented in this encounter Plan of Treatment Not on file documented as of this encounter Visit Diagnoses Not on filedocumented in this encounter
--- OUTSIDE RECORDS SUMMARY | 2024-04-06 15:56 | XMS_ITS | Encounter Summary ---
Author Organization [facility] Address [address] [place] [address] Care Team Providers Care Sole Filler Name Role Phone Unavailable Primary Care Provider Unavailabl e Encounter Details Date Type Department Care Team (Late st Contact Info) Description 12/22/2009 Historical Ophthalmology RST OPH Brennen Menendez M.D. [address] [place] [address] Social History Tobacco Use Types Packs/Day Years Used Date Smoking Tobacco: Never Assessed Sex and Gender Information Value Date Recorded Sex Assigned at Not on file Gender Identity Not on file Sexual Orientation Not on file documented as of this encounter Progress Notes * Brennen Menendez M.D. - 12/22/2009 1:26 PM CDT Eye General CHIEF COMPLAINT Recheck choroidal nevus, Salsmann's nodule HISTORY OF PRESENT ILLNESS Since last visit has not noted any pixilated vision left eye. Vision left eye not as clear as right eye, ongoing. Vision stable. No concerns either eye. 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 #4 ERM LEFT EYE - looks to have pulled itself off since 6 months previous #4 improved but still objective foveal changes on exam and va still blurred but not distorted left eye. Doubt corneal component or optical component to va loss left eye but should refract and try HCLat next visit left eye in 6 m. 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 #4 ERM LEFT EYE - looks to have pulled itself off since 6 months previous #4 improved but still objective foveal changes on exam and va still blurred but not distorted left eye. Doubt corneal component or optical component to va loss left eye but should refract and try HCLat next visit left eye in 6 m. CDM Reports - EYEGEN Id: [id number] Status: Fnl documented in this encounter Plan of Treatment Not on file documented as of this encounter Visit Diagnoses Not on filedocumented in this encounter
--- OUTSIDE RECORDS SUMMARY | 2024-04-06 15:56 | XMS_ITS | Encounter Summary ---
Author Organization [facility] Address [address] [place] [address] Care Team Providers Care Architectural Drafting Instructor Name Role Phone Unavailable Primary Care Provider Unavailabl e Encounter Details Date Type Department Care Team (Late st Contact Info) Description 04/25/2006 Historical Ophthalmology RST OPH Brennen Menendez M.D. [address] [place] [address] Social History Tobacco Use Types Packs/Day Years Used Date Smoking Tobacco: Never Assessed Sex and Gender Information Value Date Recorded Sex Assigned at Not on file Gender Identity Not on file Sexual Orientation Not on file documented as of this encounter Progress Notes * Brennen Menendez M.D. - 04/25/2006 12:00 AM CDT Eye General CHIEF COMPLAINT 18 month recheck Salzmann nodular degeneration, both eyes HISTORY OF PRESENT ILLNESS Patient has mild to moderate difficulty reading, gradually worsening over past year. Had an isolated incident of sharp shooting pain in right eye 2-3 weeks ago. Describes ocular migraine 1 week ago, peripheral distortion lasting 15 minutes, no headache or nausea following (identifies ocular migraine pictures). IMPRESSION / REPORT / PLAN #1 SALZMANN [...] NEVUS OD #3 REFRACTIVE ERROR (HYPEROPIA, PRESBYOPIA). CDM Reports - EYEGEN Id: [id number] Status: Fnl documented in this encounter Plan of Treatment Not on file documented as of this encounter Visit Diagnoses Not on filedocumented in this encounter
--- OUTSIDE RECORDS SUMMARY | 2024-04-06 15:56 | XMS_ITS | Clinical Summary ---
Author Organization [facility] Address [address] [place] [address] Care Team Providers Care Accounts Adjustable Clerk Name Role Phone Unavailable Primary Care Provider Unavailabl e Source Comments Patient records contain information from all sites at [facility]. For routine questions regarding patient records, call [phone] during business hours, M-F 8:00 AM - 5:00 PM Central Time. Record requests for emergency care only can be directed to [phone] at any time.[facility] Allergies Active Allergy Reactions Criticality Noted Date Comments Caffeine Other (see comments) 08/09/2008 Hands tremor and chest pain Horse Blood Extract GI intolerance 11/22/2002 Sulfa (Sulfonamide Antibiotics) Rash 05/10/2008 SULFA DRUGS BACTRIM Trimethoprim GI intolerance High 06/26/2022 Medications Medication Sig Dispensed Refills Start Date End Date Status atorvastatin (LIPITOR) 20 mg tablet Take 20 mg by mouth at bedtime. 05/16/2020 Active [id number] INC ORAL 1 tablet. 05/01/2022 Active calcium citrate/vitamin D3 (CITRACAL-D3 PETITES ORAL) Take 1 tablet by mouth daily. 05/30/2009 Active ibuprofen (ADVIL,MOTRIN) 200 mg capsule Motrin See Instructions, 200mg one daily 11/20/2013 Active ascorbic acid, vitamin C, (VITAMIN C) 1,000 mg tablet Take 1 tablet by mouth daily. TAB 1 TAB PO DAILY 08/10/2008 Active estrogens, conjugated, (PREMARIN) 0.625 mg tablet 0.625 mg. Takes half a tablet daily 05/01/2022 Active multivitamin-minera ls-lutein (Multivitamin 50 Plus) tablet Take 1 tablet by mouth daily. 08/10/2008 Active triamcinolone (KENALOG) 0.1 % cream Apply 1 application topically 2 (two) times a day. As needed 12/12/2021 Active triamcinolone (KENALOG) 0.025 % ointment Apply 1 application topically 2 (two) times a day. Apply to twice a week. Active UNABLE TO FIND Med Name: desonide nystatin cream as needed in the summer uses under breast and belly button. Active cycloSPORINE (RESTASIS) 0.05 % ophthalmic emulsion Administer 1 drop into both eyes 2 (two) times a day. 180 each 3 07/15/2023 Active Active Problems Problem Noted Date Diagnosed Date Hyperlipidemia 12/08/2015 Hypertension 12/08/2015 Immunizations Name Administration Dates Next Due PPSV23 08/26/2008 Td (Adult), adsorbed 02/28/2003 Family History Medical History Relation Name Comments Macular degeneration Mother Amblyopia Neg Hx Blindness Neg Hx Glaucoma Neg Hx Relation Name Status Comments Mother Social History Tobacco Use Types Packs/Day Years Used Date Smoking Tobacco: Never Passive Smoke Exposure: Current Smokeless Tobacco: Never Tobacco Cessation:Counseling Given: Not Answered Comments:Neighbor smokes and it comes in her house. Nutrition Answer Date Recorded Nutrition: EVOO Fat Source Unknown 10/23 Nutrition: Servings of Fruits/Vegetables per Day Not on file 10/23/2020 Dental Answer Date Recorded Dental: Regular Dentist Unknown 10/24/19 Sex and Gender Information Value Date Recorded Sex Assigned at Not on file Gender Identity Not on file Sexual Orientation Not on file Last Filed Vital Signs Vital Sign Reading Time Taken Comments Blood Pressure 191/96 11/20/2022 8:56 AM CDT Pulse 76 11/20/2022 8:56 AM CDT Temperature - - Respiratory Rate - - Oxygen Saturation - - Inhaled Oxygen Concentration - - Weight 77.9 kg (171 lb 11.8 oz) 11/20/2022 8:56 AM CDT Height 164 cm (5' 4.57) 11/20/2022 8:56 AM CDT Body Mass Index 28.96 11/20/2022 8:56 AM CDT Plan of Treatment Health Maintenance Due Date Last Done Comments Office Visit for Blood Press ure Check / Re-check 02/20/2023 11/20/2022 COVID-19 Vaccine (2022-2 4 season) 2023 05/13/2022, 12/18/2021, 06/08/2021, Additional history exists Depression Screening (Annual PHQ-2) 08/25/2023 Fall Risk Screen (Annual) 08/25/2023 Influenza Vaccine (#1) 2024 2, 06/04/2021, 06/19/2020 DTaP,Tdap,and Td Vaccines (2 - Td or Tdap) 09/29/2024 09/29/2014, 02/28/2003 Pneumococcal vaccine (65+ years) Completed 09/18/2015, 09/29/2014, 08/26/2008 Zoster Vaccines Completed 01/20/2018, 11/15/2017 Medical Devices Implanted Type Area Vending Machine Coin Collector Device Identifier Shelf Expiration Date Model / Serial / Lot Graft Surgisis Es Soft Tissue 4 X 7 - Hamilton [id number] Implanted:Qty: 1 on 08/19/2008 Mesh or Patch Other/Legacy - See Implant Description [employer] Description:Device Manufactu rer - M[employer]Tix. Body Location - Other. Not Applicable. Device Status Text - [id number]. Align Sling Retropubic - Hamilton [id number] Implanted:Qty: 1 on 12/12/2008 Urogenital Implant Other/Legacy - See Implant Description [employer] Description:Device Manufactu rer - Bard Patient Care Division. Body Location - Other. Not Applicable. Device Status Text - [id number].
--- OUTSIDE RECORDS SUMMARY | 2024-04-06 15:56 | XMS_ITS | Encounter Summary ---
Author Organization [facility] Address [address] [place] [address] Care Team Providers Care Specification Writer Name Role Phone Unavailable Primary Care Provider Unavailabl e Encounter Details Date Type Department Care Team (Late st Contact Info) Description 02/27/2009 Historical Ophthalmology RST OPH Brennen Menendez M.D. [address] [place] [address] Social History Tobacco Use Types Packs/Day Years Used Date Smoking Tobacco: Never Assessed Sex and Gender Information Value Date Recorded Sex Assigned at Not on file Gender Identity Not on file Sexual Orientation Not on file documented as of this encounter Progress Notes * Brennen Menendez M.D. - 02/27/2009 3:20 PM CDT Eye General CHIEF COMPLAINT Left eye blurred vision HISTORY OF PRESENT ILLNESS The patient describes blurred vision in left eye for the past two months, which is comes and goes, moderate and occurs when driving. With reading a pinto line appears in the left eye vision, noted about two to three weeks ago. The patient describes blurred vision, vertical pinto line in left eye for the past two weeks, which is comes and goes, moderate and occurs when driving. 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 #4 possible developing macular hole left eye get oct both eyes and see back. OCT no hole. discussed and pt seen with Dr Hampton. likely due to erm alone. observe. RTC urgently ifsx increase. copy of spec rx given. RTC 3m. 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 #4 possible developing macular hole left eye CDM Reports - EYEGEN Id: [id number] Status: Fnl documented in this encounter Plan of Treatment Not on file documented as of this encounter Visit Diagnoses Not on filedocumented in this encounter
--- OUTSIDE RECORDS SUMMARY | 2024-04-06 15:56 | XMS_ITS | Encounter Summary ---
Author Organization [facility] Address [address] [place] [address] Care Team Providers Care Recycling Sorter Name Role Phone Unavailable Primary Care Provider Unavailabl e Encounter Details Date Type Department Care Team (Late st Contact Info) Description 08/30/2011 Historical Ophthalmology RST OPH Brennen Menendez M.D. [address] [place] [address] Social History Tobacco Use Types Packs/Day Years Used Date Smoking Tobacco: Never Assessed Sex and Gender Information Value Date Recorded Sex Assigned at Not on file Gender Identity Not on file Sexual Orientation Not on file documented as of this encounter Progress Notes * Brennen Menendez M.D. - 08/30/2011 12:17 PM CST Eye General CHIEF COMPLAINT recheck choroidal nevus, Salsmann's nodule HISTORY OF PRESENT ILLNESS Blurred vision; left eye; constantly; symptoms are mild. 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 REC; CHANGE Left eye LENS AND OBSERVE. SX NOT BAD ENOUGH TO WARRANT DEBRIDEMENT. RTC ONE YEAR. 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 REC; CHANGE Left eye LENS AND OBSERVE. SX NOT BAD ENOUGH TO WARRANT DEBRIDEMENT. [facility] Reports - EYEGEN Id: [id number] Status: Fnl documented in this encounter Plan of Treatment Not on file documented as of this encounter Visit Diagnoses Not on filedocumented in this encounter
--- OUTSIDE RECORDS SUMMARY | 2024-04-06 15:56 | XMS_ITS | Encounter Summary ---
Author Organization [facility] Address [address] [place] [address] Care Team Providers Care Circuit Manager Name Role Phone Unavailable Primary Care Provider Unavailabl e Encounter Details Date Type Department Care Team (Late st Contact Info) Description 07/23/2017 Historical Ophthalmology RST OPH Brennen Menendez M.D. [address] [place] [address] Social History Tobacco Use Types Packs/Day Years Used Date Smoking Tobacco: Never Assessed Sex and Gender Information Value Date Recorded Sex Assigned at Not on file Gender Identity Not on file Sexual Orientation Not on file documented as of this encounter Progress Notes * Brennen Menendez M.D. - 07/23/2017 9:05 AM CST Eye General CHIEF COMPLAINT Floater HISTORY OF PRESENT ILLNESS floater; left eye; x 2-4 weeks; constant; stays in one spot superiortemporal part of her vision. Possibly some light flashes over the last few years, but very rare. Vision is stable. Patient denies ocular pain. Denies diplopia. 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
--- OUTSIDE RECORDS SUMMARY | 2024-04-06 15:56 | XMS_ITS | Referral Summary ---
Author Organization [facility] Address [address] [place] [address] Care Team Providers Care Website Optimization Strategist Name Role Phone Unavailable Primary Care Provider Unavailabl e Source Comments Patient records contain information from all sites at [facility]. For routine questions regarding patient records, call [phone] during business hours, M-F 8:00 AM - 5:00 PM Central Time. Record requests for emergency care only can be directed to [phone] at any time.[facility] Allergies Active Allergy Reactions Criticality Noted Date Comments Caffeine Other (see comments) 08/09/2008 Hands tremor and chest pain Horse Blood Extract GI intolerance 11/22/2002 Sulfa (Sulfonamide Antibiotics) Rash 05/10/2008 SULFA DRUGS BACTRIM Trimethoprim GI intolerance High 06/26/2022 Medications Medication Sig Dispensed Refills Start Date End Date Status atorvastatin (LIPITOR) 20 mg tablet Take 20 mg by mouth at bedtime. 05/16/2020 Active [id number] INC ORAL 1 tablet. 05/01/2022 Active calcium [...] Due PPSV23 08/26/2008 Td (Adult), adsorbed 02/28/2003 Social History Tobacco Use Types Packs/Day Years [...] 11/20/2022 8:56 AM CDT Plan of Treatment Not on file Medical Devices Implanted Type Area Immigration Associate Device Identifier Shelf Expiration Date Model / Serial / Lot Graft Surgisis Es Soft Tissue 4 X 7 - [place] [id number] Implanted:Qty: 1 on 08/19/2008 Mesh or Patch Other/Legacy - See Implant Description [employer]. Description:Device Manufactu rer - Skift Body Location - Other. Not Applicable. Device Status Text - [id number]. Align Sling Retropubic - [place] [id number] Implanted:Qty: 1 on 12/12/2008 Urogenital Implant Other/Legacy - See Implant Description Description:Device Manufactu rer - Bard Patient Care Division. Body Location - Other. Not Applicable. Device Status Text - [id number].
--- OUTSIDE RECORDS SUMMARY | 2024-04-06 15:56 | XMS_ITS | Encounter Summary ---
Author Organization [facility] Address [address] [place] [address] Care Team Providers Care Assembly Manager Name Role Phone Unavailable Primary Care Provider Unavailabl e Encounter Details Date Type Department Care Team (Late st Contact Info) Description 07/06/2008 Historical Ophthalmology RST OPH Brennen Menendez M.D. [address] [place] [address] Social History Tobacco Use Types Packs/Day Years Used Date Smoking Tobacco: Never Assessed Sex and Gender Information Value Date Recorded Sex Assigned at Not on file Gender Identity Not on file Sexual Orientation Not on file documented as of this encounter Progress Notes * Brennen Menendez M.D. - 07/06/2008 3:31 PM CST Eye General CHIEF COMPLAINT six week recheck recent conjunctivitis. ? iritis. HISTORY OF PRESENT ILLNESS Patient denies ocular pain. Patient states a little discomfort because it has a full feeling and it occurs usually in the morning. Her main complaint is that she has tearing. She has had a sore neck and had ear pain and wondersif this is all related. stopped gtts 2 wks ago. 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 #4 recent conjunctivitis doing well now. Most recent sx suggestive of surface issues related to #1. Cont with art tears and oint prn. Rtc one year and prn. 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 #4 recent conjunctivitis CDM Reports - EYEGEN Id: [id number] Status: Fnl documented in this encounter Plan of Treatment Not on file documented as of this encounter Visit Diagnoses Not on filedocumented in this encounter
--- OUTSIDE RECORDS SUMMARY | 2024-04-06 15:56 | XMS_ITS | Encounter Summary ---
Author Organization [facility] Address [address] [place] [address] Care Team Providers Care Bulldozer Operator Name Role Phone Unavailable Primary Care Provider Unavailabl e Encounter Details Date Type Department Care Team (Late st Contact Info) Description 10/03/2010 Historical Ophthalmology RST OPH Brennen Menendez M.D. [address] [place] [address] Social History Tobacco Use Types Packs/Day Years Used Date Smoking Tobacco: Never Assessed Sex and Gender Information Value Date Recorded Sex Assigned at Not on file Gender Identity Not on file Sexual Orientation Not on file documented as of this encounter Progress Notes * Brennen Menendez M.D. - 10/03/2010 1:00 PM CST Eye General CHIEF COMPLAINT recheck choroidal nevus, Salsmann's nodule HISTORY OF PRESENT ILLNESS Patient states vision is better, she feels it has corrected itself. Patient denies light flashes, floaters or double vision. 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 very stable. 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 very stable. CDM Reports - EYEGEN Id: [id number] Status: Fnl documented in this encounter Plan of Treatment Not on file documented as of this encounter Visit Diagnoses Not on filedocumented in this encounter
--- OUTSIDE RECORDS SUMMARY | 2024-04-06 15:56 | XMS_ITS | Encounter Summary ---
Author Organization [facility] Address [address] [place] [address] Care Team Providers Care Instructor Painting Name Role Phone Unavailable Primary Care Provider Unavailabl e Encounter Details Date Type Department Care Team (Late st Contact Info) Description 05/10/2008 Historical Ophthalmology RST OPH Brennen Menendez M.D. [address] [place] [address] Social History Tobacco Use Types Packs/Day Years Used Date Smoking Tobacco: Never Assessed Sex and Gender Information Value Date Recorded Sex Assigned at Not on file Gender Identity Not on file Sexual Orientation Not on file documented as of this encounter Progress Notes * Brennen Menendez M.D. - 05/10/2008 10:38 AM CDT Eye General CHIEF COMPLAINT recheck pain and redness left eye HISTORY OF PRESENT ILLNESS episodes of pain, red both eyes ; recently left eye red for over one wk. sudden onset of pain 4d ago with tearing. seen in urgent care, improved with gent gtts. much better. 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 #4 recent conjunctivitis latter reason for this visit. Probably erosion but also ac reaction. doubt viral but will culture. cont gentamicin qid for about 5 d. 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 #4 recent conjunctivitis CD Reports - EYEGEN Id: [id number] Status: Fnl documented in this encounter Plan of Treatment Not on file documented as of this encounter Visit Diagnoses Not on filedocumented in this encounter
--- OUTSIDE RECORDS SUMMARY | 2024-04-06 15:56 | XMS_ITS | Clinical Summary ---
Author Organization [facility] Address [place], [place] [address] Care Team Providers Care Printing Equipment Mechanic Apprentice Name Role Phone Baldemar Starks MD Primary Care Provider [phone] Allergies Active Allergy Reactions Criticality Noted Date Comments Caffeine Other - Describe In Comment Field 08/09/2008 Hands tremor and chest pain Horse Blood Extract GI Upset 11/22/2002 Sulfa (Sulfonamide Antibiotics) Other - Describe In Comment Field,Rash 05/10/2008 Temperature dropped, fell ill SULFA DRUGS BACTRIM Trimethoprim GI Upset High 06/26/2022 Medications Medication Sig Dispensed Refills Start Date End Date Status atorvastatin (LIPITOR) 20 mg tablet Take 20 mg by mouth at bedtime. 05/18/2022 Active Restasis 0.05 % ophthalmic emulsion Place 1 Drop into both eyes two times daily. 05/29/2022 Active triamcinolone (ARISTOCORT; KENALOG) 0.1 % cream APPLY TOPICALLY TO THE AFFECTED AREA TWICE DAILY 12/12/2021 Active estrogens conjugated (PREMARIN) 0.625 mg tablet 0.625 mg. 05/01/2022 Active aspirin chewable 81 mg chewable tablet Chew 1 Tablet (81 mg) by mouth once daily with a meal. 02/12/2024 Active Active Problems No known active problems Encounters Date Type Department Care Team Description 02/12/2024 7:40 AM CDT Office Visit [facility] [address] [place] [address] Aydin Reyes MD Musculoskeletal Problem (Follow up back and left leg) 02/12/2024 Travel from Last 3 Months Family History Medical History Relation Name Comments Genetic Other 1 macular degener ation-parent Genetic Other 2 macular degener ation-parent~cancer~irregular heart beat~thyroid~arthritis Relation Name Status Comments Other 1 Other 2 Social History Tobacco Use Types Packs/Day Years Used Date Smoking Tobacco: Never Smokeless Tobacco: Never Tobacco Cessation:Counseling Given: Yes Social Connections Answer Date Recorded Frequency of Communication with Friends and Fami ly Not on file 07/08/2022 Sex and Gender Information Value Date Recorded Sex Assigned at Not on file Gender Identity Not on file Sexual Orientation Not on file Obstetrics History Last Filed Vital Signs Vital Sign Reading Time Taken Comments Blood Pressure 134/85 02/12/2024 7:50 AM CDT Pulse 79 02/12/2024 7:50 AM CDT Temperature 36.5 ??C (97.7 ??F) 02/12/2024 7:50 AM CD T Respiratory Rate - - Oxygen Saturation 96% 02/12/2024 7:50 AM CDT Inhaled Oxygen Concentration - - Weight 77.7 kg (171 lb 6.4 oz) 02/12/2024 7:50 A M CDT Height - - Body Mass Index - - Plan of Treatment Health Maintenance Due Date Last Done Comments Tdap 1954 Depression screening for age 12+ 1955 BMI (ht and wt on same day) for age 18+ 1961 Tetanus booster 1963 Zoster (shingles) series for age 50+ (1 of 2) 01/30/19 93 DEXA/DXA scan for age 65+ 01/31/2008 Medicare Wellness for age 65+ 01/31/2008 Pneumococcal series for age 65+ (1 of 1 - PCV) 008 COVID-19 vaccine series (2022-24 season) 3 Influenza for age 65+ 04/25/2024 Care Teams Printing Equipment Mechanic Apprentice Relationship Specialty Start Date End Date Baldemar Starks MD [address] [place] [address] PCP - General Internal Medicine 09/30/22
--- OUTSIDE RECORDS SUMMARY | 2024-04-06 15:56 | XMS_ITS | Encounter Summary ---
Author Organization [facility] Address [address] [place] [address] Care Team Providers Care [place] Name Role Phone Unavailable Primary Care Provider Unavailabl e Encounter Details Date Type Department Care Team (Late st Contact Info) Description 05/29/2009 Historical Ophthalmology RST OPH Brennen Menendez M.D. [address] [place] [address] Social History Tobacco Use Types Packs/Day Years Used Date Smoking Tobacco: Never Assessed Sex and Gender Information Value Date Recorded Sex Assigned at Not on file Gender Identity Not on file Sexual Orientation Not on file documented as of this encounter Progress Notes * Brennen Menendez M.D. - 05/29/2009 1:14 PM CDT Eye General CHIEF COMPLAINT parts of letter missing HISTORY OF PRESENT ILLNESS The patient describes blurred vision in left eye for the past months, which is constant, mild. Had episode after reading saw a round reddish [place] with the left eye for a few seconds, if opened and close it would appear again, about one month ago. CENTRAL VISION SEEMS PIXELATED. LATTER SX NEW. 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 #4 ERM LEFT EYE NEW SX. GET OCT LEFT EYE AND SEE BACK. mild perifoveal traction. discussed with Dr Hampton who reviewed OCT. Observe. Use amsler. RTC 6 mos or eduin if any changes in va. 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 #4 possible developing macular hole left eye CDM Reports - EYEGEN Id: [id number] Status: Fnl documented in this encounter Plan of Treatment Not on file documented as of this encounter Visit Diagnoses Not on filedocumented in this encounter
--- OUTSIDE RECORDS SUMMARY | 2024-04-06 15:56 | XMS_ITS | Encounter Summary ---
Author Organization [facility] Address [address] [place] [address] Care Team Providers Care Napkin Band Wrapper Name Role Phone Unavailable Primary Care Provider Unavailabl e Encounter Details Date Type Department Care Team (Late st Contact Info) Description 02/23/2016 Historical Ophthalmology [facility] Brennen Menendez M.D. [address] [place] [address] Social History Tobacco Use Types Packs/Day Years Used Date Smoking Tobacco: Never Assessed Sex and Gender Information Value Date Recorded Sex Assigned at Not on file Gender Identity Not on file Sexual Orientation Not on file documented as of this encounter Progress Notes * Brennen Menendez M.D. - 02/23/2016 1:46 PM CDT Eye General CHIEF COMPLAINT Patient complains of distance blur HISTORY OF PRESENT ILLNESS Patient complains of trouble seeing road signs; has to get closer; one year. 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 get new glasses. observe otherwise. rtc 2 yrs. 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 [facility] Reports - EYEGEN Id: [id number] Status: Fnl documented in this encounter Plan of Treatment Not on file documented as of this encounter Visit Diagnoses Not on filedocumented in this encounter
== END 2024-04-02 08:53 | disposition home or self-care (01) ==
LOC: NFLDREF 04-06 15:53
PROVIDERS: PCP Internal Medicine; Referring Provider Internal Medicine; Visit Provider Internal Medicine
DX: E78.5 Hyperlipidemia, unspecified (principal); Z13.228 Encounter for screening for other metabolic disorders
CPT/HCPCS: 80053; 80061

== ENCOUNTER 2024-04-12 09:00 | Outpatient (RCR) | payer MEDICARE, BC, SELFPAY ==
--- NOTE | 2024-03-03 17:04 | PT.OPEX ---
PT [facility] Outpatient Eval PT [facility] Outpatient Eval Start: 03/02/24 14:30 Freq: Status: Active Protocol: Document 03/03/24 08:01 RAINER (Rec: 03/03/24 08:03 RAINER [id number]) E-signed By Brittany García PT Physical Therapy Outpatient Evaluation Insurance Information Recert Due Date 06/01/24 Insurance Name Medicare B,Blue Cross/Blue Shield Medical Diagnosis pelvic floor weakness other female genital prolapse Treating Diagnosis lack of coordination - muscle mixed UI Referring MD Dr Starks Subjective Preferred Name She/Her Subjective Paty presents with diagnosis of PF weakness. Symptoms started many years ago and have gradually worsened over the years. Currently her main c/o is having UI symptoms without any feeling of urgency and lack of awareness with leakage. Pt has been through PF rehab in past with good results. She has not continued with her HEP as directed. Pt is currently controlling her UI symptoms with frequent urination, urinating just in case and has reduce her fluid intake to reduce her UI symptoms. UI symptoms can occur with coughing, sneezing, making her way to the bathroom, bending/lifting. reaching. Her UI symptoms can occur multiple times a day. Overall her bowel function is fair. Does report having 2 incidents of bowel leaking in the last decade that was associated with loose stools. However, her concern was that she did not notice she had leaked stool until the next time she toileted. She is not currently sexually active. Goals for therapy include working on a program pt can do to help reduce her UI symptoms and to strengthen her PFM. Date of Last Physician Visit 01/20/24 Current Work Status Retired Precautions Treatment Precautions/Contraindications lumbar stenosis-- lumbar dyusfunction Assessment Assessment/Impression 79 yo client presents with PF weakness and mixed UI symptoms . Pt has tried to control her UI symptom with restricting fluid, and by increasing frequency of urination during the day to every 1-2 hours. Her leaking during the day often occurs on her way to the bathroom. Can' t get there on time. Pt is voiding at max 8 oz of urine. She does wake 2-3 times a night and will urinate due to being up. When she leaks, she will leak spurts. Rarely does she have large leaks. Did not have time to assess her PFM status today. Will complete assessment of her PFM function at her next session or as able. Pt is appropriate for further skilled PT services, due to her UI symptoms. Will include use of therapeutic exercise, therapeutic activities, neuromuscular re-ed, manual therapy, and self cares to improve her PFM function. Plan of Care Rehabilitation Potential Good Physical Therapy Goals Short term goals to be achieved in 4 weeks 1. Able to state 4 of 4 urge suppression/bladder retraining strategies 2. Able to report voiding intervals of 1X every 2-4 hours, 50% of the time. 3. Pt will demonstrate use of functional PFM/precontraction to eliminate UI during coughing, sneezing, lifting and reaching. 4. Will demonstrate an increase in PFM endurance to 8 sec holds X 10 reps, or greater, for ability to reduce UI symptoms with ADLs and during social activities. long-term goals to be achieved in 12 weeks. 1. Independent with self-care program to allow for reduction in her UI symptoms and help reduce fear of fecal incontinence symptoms. 2. Will report at least a 75% reduction in her UI symptoms as seen with ability to stay dry 4 out of 7 days. 3. Pt will wake 1-2 times a night, or less, to improve her rest, 3 out of 4 weeks. 4. Pt will be able to demonstrate proper mechanics with lifting/carrying, including ability to manage IAP, to reduce MADHURI symptoms. Coordination/Communication With Referral Source Treatment Plan/Direct Interventions Joint Mobilization,Manual Therapy,Neuromuscular Re-ed, Self-Care/Home Management, Therapeutic Activities, Therapeutic Exercises Frequency/Duration 1 time a week for up to 12 weeks. Patient Will Be Discharged From Therapy Completion of LTG(s),Skills Plateau,Independent w/HEP, Independently Progressing Evaluation Billing Untimed Code Treatment Minutes 45 Complexity Moderate Certification Information Initial Certification Date 03/03/24 Ending Certification Date 06/01/24 Provider Signature Required Yes Provider Signature Shows Agreement With POC & Medical Necessity Physician NPI Number Write NPI# Here Physician Comment/Change : Physician Signature & Date Requested Please Sign/Date Here
== END 2024-08-10 23:59 | disposition home or self-care (01) ==
PROVIDERS: PCP Internal Medicine; Visit Provider Internal Medicine
DX: N81.89 Other female genital prolapse (principal); N39.46 Mixed incontinence; R27.8 Other lack of coordination; Z51.89 Encounter for other specified aftercare
CPT/HCPCS: 97110; 97112; 97140; 97162; 97535

== ENCOUNTER 2024-10-14 07:51 | Outpatient (CLI) | payer MEDICARE, BC, SELFPAY ==
--- NOTE | 2024-10-14 08:00 | CRLHL7_ITS ---
For Patients: As a result of the Century Cures Act, medical imaging exams and procedure reports are released immediately into your electronic medical record. You may view this report before your referring provider. If you have questions, please contact your health care provider. Indication : Trauma. Technique : CT of the brain without intravenous contrast. Comparison: CT head 10/28/2022. Findings: No acute blurring of the pinto-white differentiation. There is no intracranial hemorrhage. The ventricles are proportionate to the cerebral sulci. The 4th ventricle is midline. Basal cisterns appear patent. No abnormal extra-axial fluid collection identified. Mild parenchymal volume loss. There is mild patchy periventricular hypodensity, favored to represent chronic ischemic microvascular disease. There is no intracranial mass, mass effect or midline shift identified. No depressed calvarial fracture. Right frontal superficial scalp sebaceous cyst. Chronic right maxillary sinusitis. Impression: 1. No acute intracranial process. 2. Mild chronic ischemic microvascular disease. Please note that all CT scans at this facility use dose modulation, iterative reconstruction, and/or weight-based dosing when appropriate to reduce radiation dose to as low as reasonably achievable. Dictated by Kal Tatum MD @ 10/14/2024 12:16:06 PM (Electronically Signed)
== END 2024-10-14 07:52 | disposition home or self-care (01) ==
LOC: CT 07:52
PROVIDERS: PCP Internal Medicine; Visit Provider Internal Medicine
DX: S09.90XA Unspecified injury of head, initial encounter (principal); I67.82 Cerebral ischemia
CPT/HCPCS: 70450

== ENCOUNTER 2025-01-10 08:56 | Outpatient (CLI) | payer MEDICARE, BC, SELFPAY | END 2025-01-10 08:57 | disposition home or self-care (01) | LOC: NFLDREF 01-19 00:47 | PROVIDERS: PCP Internal Medicine; Referring Provider Internal Medicine; Visit Provider Internal Medicine | DX: E78.5 Hyperlipidemia, unspecified (principal) | CPT/HCPCS: 80053; 80061 ==

== ENCOUNTER 2025-02-03 12:46 | Outpatient (CLI) | payer MEDICARE, BC, SELFPAY ==
--- NOTE | 2025-02-03 13:00 | CRLHL7_ITS ---
For Patients: As a result of the Century Cures Act, medical imaging exams and procedure reports are released immediately into your electronic medical record. You may view this report before your referring provider. If you have questions, please contact your health care provider. DXA BONE MINERAL DENSITY STUDY Current height (in): 65. Weight (lb): 170. Menopause age: 50. Ethnicity: White. 1. Have you had a previous hip or vertebral fracture? No. 2. Have you had any fractures during your adult life which did not result from significant trauma (e.g., auto accident)? Yes. 3. Did either of your parents have a hip fracture? No. 4. Do you smoke? No. 5. Have you ever taken Glucocorticoids? Yes. 6. Do you have rheumatoid arthritis? No. 7. Do you have secondary osteoporosis? No. 8. Do you drink 3 or more alcoholic drinks per day? No. 9. Are you being treated for osteoporosis? No. 10. Have you ever taken any of the following medications: Actonel, Evista, Fosamax, Miacalcin, Reclast, Boniva, Forteo, HRT (i.e. estrogen/hormone therapy), Protelos, Prolia, Vitamin D, Calcium, other ??? please specify. ANSWER: Yes, Vitamin D, and Calcium. 11. Do you have any of the following medical conditions: Anorexia or bulimia, asthma or emphysema, end stage renal disease, hyperparathyroidism, any seizure disorders, cancer, inflammatory bowel diseases, hysterectomy, other ??? please specify. ANSWER: Yes, Hysterectomy. 12. What was your maximum height (inches)? 67. 13. Do you perform weight bearing exercise regularly? Yes. 14. Do you regularly consume dairy products? Yes. 15. Do you drink caffeinated beverages? No. 16. At what age did your period start? 12. 17. Are you premenopausal? No. 18. How many full term pregnancies have you had? 4. 19. Have you ever missed your period for more than 6 months in a row (not including or menopause)? No. TECHNIQUE: Bone mineral density study was performed using the TDX. FINDINGS: The results of the study expressed as bone mineral density (BMD) are as follows: Lumbar spine L1to L4: BMD: 1.032 g/cm2. T-score: -0.1. Z-score: 2.6. Neck Left: BMD: 0.683 g/cm2. T-score: -1.5. Z-score: 0.9. Right: BMD: 0.666 g/cm2. T-score: -1.7. Z-score: 0.7. Total Left: BMD: 0.952 g/cm2. T-score: 0.1. Z-score: 2.3. Right: BMD: 0.863 g/cm2. T-score: -0.6. Z-score: 1.5. IMPRESSION: Osteopenia. COMPARISON: Compared with scan of 01/12/2015, the bone mineral density has decreased by 5.1 percent at the spine and increased by 3.6 percent at the hip. FRAX 10-year Fracture Risk Major Osteoporotic Fracture: 29 percent Hip Fracture: 8.2 percent Reported Risk Factors: [place] () Neck BMD=0.666, BMI=28.3, previous fracture, glucocorticoids. Corby Contreras M.D. Diagnostic Radiologist [email or web address] KENNETH/germania DW/Dictated by: Corby Contreras MD @ 02/04/2025 10:47:00 AM (Electronically Signed)
== END 2025-02-03 12:47 | disposition home or self-care (01) ==
LOC: RAD 12:47
PROVIDERS: PCP Internal Medicine; Visit Provider Internal Medicine
DX: M85.80 Other specified disorders of bone density and structure, unspecified site (principal); M85.89 Other specified disorders of bone density and structure, multiple sites; Z78.0 Asymptomatic menopausal state
CPT/HCPCS: 77080